=== PATIENT | female | born 1995 | race Caucasian/White ===

== ENCOUNTER 2024-11-14 08:39 | Outpatient (AMB) | payer OTHER, SELFPAY ==
--- NOTE | 2024-11-14 09:05 | A.OFFPC_ITS ---
Vital Signs 11/14/24 09:22 Height 5 ft 8 in Weight 203 lb 8 oz BMI 30.9 BP 124/75 Blood Pressure Location Rt brachial Position Sitting Respiration 16 Pulse 99 Pulse Source Pulse Oximeter Temp 98.3 F Temp Source Oral Pulse Oximetry (%) 98 Oxygen Delivery Method Room Air Intake Visit Reasons: LINING BASTER regular visit Intake Note: patient here for new patient visit. Fancy Packer Required: No Is last menstrual period known: Yes Last menstrual period: 10/26/24 Post menopausal: No Patient : No Allergies No Known Allergies Allergy (Verified 11/14/24 09:33) Medication List - Last Reconciled 11/14/24 by Dustin Guerrero, MASON drospirenone-ethinyl estradiol 3-0.03 mg (Destiney (28)) 1 tab PO DAILY Tobacco use date assessed: 11/14/24 Dental Screening Dental Screen Date: 11/14/24 Did you have a dental visit in the last 12 months?: Yes Did you have a dental problem in the last 6 months where you did not have access to dental care?: No Was dental information given to patient?: Patient has dentist HPI HPI Comments History of Present Illness Details 29-year-old female presents to establish care. Relocated from [facility] to [facility] in 03/2024 Prior PCP? - [facility] Last office visit/CPE/labs - 12/2023 Acute issue(s) - Unsteady gait due to h/o meningitis. She notes that she was misdiagnosed in [facility] for several years. She was told by her neurologist that her meningitis resulted in nerve damage in her brain leading to gait abnormality. She did physical therapy in allergy without improvement of her gait. She is willing to try physical therapy again. Past Medical History - Myopia - Constipation - Meningitis: at 1 year and 4 years old - Unsteady gait due to h/o meningitis Surgical History - LASIK surgery both eyes - Tooth extraction Family History - Denies (she is adopted and does not kn ow her family background) Social History - Nonsmoker. Does not vape. Does not dri nk alcohol. Denies recreational drug use - Has been making healthy dietary choice s. Exercises routinely. Generally sleep well Health maintenance - Last eye exam was 4 years ago. Referre d to Ophthalmology for routine eye care - Last dental visit was earlier this tue - Last tetanus vaccine was in 11/20/2023 - She notes that she is up-to-date on th e flu vaccine - She has never had a pap smear test. Re ferred to [facility] control electrician for a pap smear test [facility] Medical History (Updated 11/15/24 @ 15:05 by Dustin Guerrero CNP) Constipation Meningitis Surgical History (Updated 11/14/24 @ 09:13 by Ai Mauricio) Hx of LASIK History of tooth extraction Social History Housing: Apartment Patient Tobacco Use Status: Never used Tobacco e-Cigarette/Vaping Use: Never Used Second Hand Smoke Exposure: Yes service: No Current occupational status: unemployed Current occupational exposures/hazards: No Cognitive needs: No Hearing needs: No Vision needs: No Female Reproductive History Menstrual Date of last menstrual period: 10/26/24 Questionnaire PHQ-9 Over the last 2 weeks, how often have you been bothered by any of the following problems? 1. Little interest or pleasure in doing things: not at all 2. Feeling down, depressed, or hopeless: not at all 3. Trouble falling or staying asleep, or sleeping too much: several days 4. Feeling tired or having little energy: not at all 5. Poor appetite or overeating: not at all 6. Feeling bad about yourself - or that you are a failure or have let yourself or your family down: not at all 7. Trouble concentrating on things, such as reading the newspaper or watching television: several days 8. Moving or speaking so slowly that other people could have noticed. Or the opposite - being so fidgety or restless that you have been moving around a lot more than usual: not at all 9. Thoughts that you would be better off or of hurting yourself in some way: not at all Total score: 2 Depression Screening Interpretation: Negative Depression Screening Done: Yes 71698 - PHQ-9 Billing: Yes Source: Developed by Drs. Attila Oglesby, Shazia Mendoza, Sp Smith and colleagues, with an educational tosha from [employer]. Thrive Questionnaire Date Thrive assessed: 11/14/24 I am a: Patient What is your living situation today?: I have a steady place to live Within the past 12 months, did the food you bought not last and you didn't have the money to get more?: Never true Within the past 12 months, did you worry whether your food would run out before you got money to buy more?: Never true Do you have trouble paying for medicines?: No Do you have trouble getting transportation to medical appointments?: No Do you have trouble paying your heating and electricity bill?: No Do you have trouble taking care of your child, family member or friend?: No Do you have trouble with day-to-day activities such as bathing, preparing meals, shopping, managing finances, etc.?: No Are you currently unemployed and looking for a job?: Yes Are you interested in more education?: No Please select the resources that you would like help with: None Currently or been in a relationship where the following occur: No concerns reported THRIVE Score: 0 AUDIT C Alcohol Use Questionnaire (AUDIT-C) 1. How often do you have a drink containing alcohol?: Never 3. How often do you have six or more drinks on one occasion?: Never Total Score: 0 Score Reviewed/Action Taken: Yes JUAN CARLOS-7 AMB Questionnaire JUAN CARLOS-7 Date JUAN CARLOS - 7 assessed: 11/14/24 Feeling nervous, anxious, or on edge: 0 = Not at all Not being able to stop or control worryin = Several days Worrying too much about different things: 1 = Several days Trouble relaxin = Not at all Being so restless that it is hard to sit still: 0 = Not at all Becoming easily annoyed or irritable: 0 = Not at all Feeling afraid as if something awful might happen: 0 = Not at all Total JUAN CARLOS-7 score (0-4 normal; 5-9 mild; 10-14 moderate; 15-21 severe): 2 Source: Developed by Drs. Attila Oglesby, Shazia Mendoza, Sp Smith and colleagues, with an educational tosha from [employer]. Review of Systems Const Details: Denies chills, Denies fatigue, Denies fever(s), Denies headache(s) and Denies weakness HEENT Denies change in vision, Denies dizziness, Denies headache(s), Denies hearing loss, Denies nasal congestion, Denies sinus pain, Denies sinus pressure and Denies sore throat Card Denies chest pain, Denies lightheadedness, Denies dyspnea and Denies other (palpitations) Resp Denies cough, Denies dyspnea and Denies wheezing GI Denies abdominal pain, Denies melena, Denies hematochezia, Denies change in bowel habits, Denies dyspepsia and Denies nausea Denies hematuria and Denies dysuria Musc Reports abnormal gait, Denies myalgias, Denies arthralgias, Denies numbness and Denies tingling Skin/Breast Denies rash, Denies unusual bruising and Denies wounds Neuro Reports abnormal gait, Denies dizziness, Denies headache(s), Denies memory loss, Denies numbness, Denies Sensory deficit (Neuro), Denies tingling and Denies weakness Psych Denies anxiety, Denies depression and Denies memory loss Endo Denies cold intolerance, Denies fatigue, Denies heat intolerance, Denies polydipsia and Denies polyuria Rajan/Lymph Denies easy bleeding and Denies easy bruising Aller/Immun Denies wheezing Physical exam (Primary Care) Vital Signs: Last Vital Signs Temp 98.3 F 11/14/24 09:22 Pulse 99 11/14/24 09:22 Resp 16 11/14/24 09:22 BP 124/75 11/14/24 09:22 Pulse Ox 98 11/14/24 09:22 Oxygen Delivery Method Room Air 11/14/24 09:22 BMI result Body Mass Index 30.9 Tobacco/Smoking Status: Tobacco use Status Tobacco use date assessed 11/14/24 11/14/24 09:25 Patient Tobacco Use Status Never used Tobacco 11/14/24 09:25 e-Cigarette/Vaping Use Never Used 11/14/24 09:25 PHQ-9: PHQ-9 Score PHQ-9: Total score 2 11/14/24 09:34 Depression Screening Interpretation: Negative Thrive Assessment: Date of Thrive Assessment Date Thrive assessed 11/14/24 11/14/24 09:09 Currently or been in a relationship where the following occur: No concerns reported Const Other: General: no acute distress, well developed, alert and awake Nutritional Appearance: well nourished Orientation/consciousness: patient oriented x3 HENMT Head: Yes normocephalic and Yes atraumatic Ears: hearing grossly normal bilaterally and TM's normal bilaterally General nose exam: Normal external nose present and Normal nares present Mouth: Normal oral and palatal mucosa present and moist mucous membranes Teeth and gingiva: dentition normal Throat: Yes oropharynx normal Eyes Pupils: Equal, round and reactive pupils present and Pupil accommodation reflex normal EOM: EOMs intact bilaterally Neck Neck: Yes normal visual inspection, Yes no lymphadenopathy and Yes trachea midline Thyroid: Thyroid normal Carotids: no bruits Lymphatic: no lymphadenopathy noted Chest Chest palpation & inspection: normal inspection of the chest Resp Effort & Inspection: normal respiratory effort Auscultation: clear to auscultation bilaterally Cardio Rate: regular rate Rhythm: regular rhythm Heart sounds: S1 normal heart sound present, S2 normal heart sound present, no gallops, no murmurs and no rubs Bruits: no abdominal aortic bruits and no carotid bruits GI Palpation (GI): No Abdominal aortic bruit present, Soft to palpation, nontender, No hepatosplenomegaly present and No Rebound tenderness present Auscultation: normal bowel sounds General: Yes no CVA tenderness Back/Spine/Pelvis Back: no CVA tenderness Cervical Spine: cervical ROM normal and No Cervical spine tenderness Thoracic/Lumbar Spine: thoraco-lumbar ROM normal, No pain with thoraco-lumbar ROM, No thoracic spinal tenderness and No lumbar spinal tenderness Skin General: warm and dry. Normal skin color. Normal skin turgor Lesions: no lesions Rashes: no rashes Trauma: no lacerations or abrasions Wounds: no wounds Nails: normal Neuro General: patient oriented x3, unsteady gait and CN's II-XI intact bilaterally Cranial nerves: Yes Equal, round and reactive pupils present Cognition (Neuro): normal cognition Gait exam (Neuro): Unsteady gait present Motor exam (neuro): 5/5 motor strength present throughout Sensory Exam: No Sensory deficit (Neuro) Deep tendon reflexes (DTR's): Right patellar reflex intensity grade: 2+ and Left patellar reflex intensity grade: 2+ Extrem General: Yes normal to inspection, No edema and No calf tenderness Psych Appearance: grossly normal Affect: normal affect Attitude: cooperative Thought process: Normal thought process present Coding Level of Care Code New Pt Level 4 (49592) New Pt Prev Care 18-39yr(80101 Diagnoses Normal physical examination, routine Z00.00 Pap smear for cervical cancer screening Z12.4 Obesity (BMI 30.0-34.9) E66.811 Eye exam, routine Z01.00 Unsteady gait R26.81 History of meningitis Z86.61 Laboratory tests ordered as part of a complete physical exam (CPE) Z00.00 Additional Codes PHQ-9 - 32986 - PHQ-9 Billing: Yes ([id number]) Assessment & Plan Assessment & Plan (1) Normal physical examination, routine: Code(s): Z00.00 - Encounter for general adult medical examination without abnormal findings Category: Medical Plan: Normal physical exam except for unsteady gait related to childhood meningitis. Advised to perform lab work and follow-up for telehealth visit in 2-3 weeks for labs review. Return sooner with symptoms or concerns. Verbalized understanding and agreed with treatment plan. (2) Pap smear for cervical cancer screening: Code(s): Z12.4 - Encounter for screening for malignant neoplasm of cervix Category: Medical Plan: She has never had a pap smear test. Referred to [facility] control electrician for a pap smear test. (3) Obesity (BMI 30.0-34.9): Code(s): E66.811 - Obesity, class 1 Category: Medical Plan: She currently weighs 203 lb, BMI is 30.9. Declines referral to tobacco stripping machine operator at this time and notes that she would continue to make healthy dietary changes and exercise routinely. Healthy diet and routine exercise encouraged. Follow-up as needed. Verbalized understanding and agreed with the treatment plan. (4) Eye exam, routine: Code(s): Z01.00 - Encounter for examination of eyes and vision without abnormal findings Category: Medical Plan: Last eye exam was 4 years ago. Referred to Ophthalmology for routine eye care. (5) Unsteady gait: Code(s): R26.81 - Unsteadiness on feet Category: Medical Plan: Unsteady gait to bilateral lower extremity related to childhood meningitis. She had physical therapy without improvement. She is willing to try physical therapy again. Referred to [facility] physical therapy for lower extremity strengthening and mobility. Also referred to [facility] to rule out other neurological causes. Follow-up with symptoms or concerns. Verbalized understanding and agreed with the plan. (6) History of meningitis: Code(s): Z86.61 - Personal history of infections of the central nervous system Category: Medical Plan: Plan as above. (7) Laboratory tests ordered as part of a complete physical exam (CPE): Code(s): Z00.00 - Encounter for general adult medical examination without abnormal findings Category: Medical Plan: Fasting labs ordered as part of a complete physical exam. Advised to fast for at least 10 hours before getting labs drawn. May drink water Verbalized understanding and agreed with treatment plan. Orders: Orders Complete Blood Count Auto Diff 11/14/24 Z00.00 - Encounter for general adult medical examination without abnormal findings Comprehensive [place]. Panel Fast 11/14/24 Z00.00 - Encounter for general adult medical examination without abnormal findings TSH reflex Free T4 11/14/24 Z00.00 - Encounter for general adult medical examination without abnormal findings Lipid Panel 11/14/24 Z00.00 - Encounter for general adult medical examination without abnormal findings UA CC w/rflx Micro + Cult 11/14/24 Z00.00 - Encounter for general adult medical examination without abnormal findings Vitamin D 25-OH Total 11/14/24 Z00.00 - Encounter for general adult medical exa mination without abnormal findings Microalbumin, Random (w Creat) 11/14/24 Z00.00 - Encounter for general adult medical examination without abnormal findings PT Evaluation and Treatment Today R26.81 - Unsteadiness on feet Referrals Ophthalmology Referral Z01.00 - Encounter for examination of eyes and vision without abnormal findings MAINTENANCE FITTER Referral Z12.4 - Encounter for screening for malignant neoplasm of cervix Neurology Referral R26.81 - Unsteadiness on feet, Z86.61 - Personal history of infections of the central nervous system
--- OUTSIDE RECORDS SUMMARY | 2024-11-14 09:17 | XMS_ITS | Clinical Summary ---
Author Organization [facility] [address] [place] [address] [place] [phone] Phone Care Team Providers Care Crane Assembler Name Role Phone Unavailable Primary Care Provider Unavailabl e Medications drospirenone-eth inyl estradioL (LINCOLN,PRASANNA,Y [place]) 3-0.02 mg per tablet Take 1 tablet by mouth 1 (one) time each day. 84 tablet 1 10/25/2024 Active Encounters Date Type Department Care Team Description 10/25/2024 10:30 AM EST Office Visit Obstetrics and Gynecology [facility] [address] [place] [phone] Kristian Finnegan CNM General counseling and advice for contraceptive management (Primary Dx); BCP ( control pills) initiation from Last 3 Months Social History Tobacco Use Types Packs/Day Years Used Date Smoking Tobacco: Never Assessed Comments No Sex and Gender Information Value Date Recorded Sex Assigned at Not on file Legal Sex Female 1:10 PM EST Gender Identity Not on file Sexual Orientation Not on file Last Filed Vital Signs Vital Sign Reading Time Taken Comments Blood Pressure 117/81 10/25/2024 10:21 AM EST Pulse 73 10/25/2024 10:21 AM EST Temperature - - Respiratory Rate - - Oxygen Saturation - - Inhaled Oxygen Concentration - - Weight 93 kg (205 lb) 10/25/2024 10:21 AM EST Height - - Body Mass Index - - Plan of Treatment Upcoming Encounters Date Type Department Care Team (Late st Contact Info) Description 01/24/2025 10:30 AM EDT Office Visit Obstetrics and Gynecology - [place] [address] [place] [phone] Kristian Finnegan, CNM [address] [place] [address] Health Maintenance Due Date Last Done Comments DTaP,Tdap,and Td Vaccines (1 - Tdap) 2012 Hepatitis B Vaccines (1 of 3 - 19+ 3-dose series) 2012 Cervical Cancer Screening: P ap Smear 2014 COVID-19 Vaccine ( - 2023-2 5 season) 2024 Influenza Vaccine (#1) 2024 Depression Screening 08/02/2024 HIV Screening 08/02/2024 Hepatitis C Screening 08/02/2024 Social Influencers of Health Screening 08/02/2024 HIB Vaccines Aged Out No longer eligi ble based on patient's age to complete this topic HPV Vaccines Aged Out No longer eligi ble based on patient's age to complete this topic Hepatitis A Vaccines Aged Out No long er eligible based on patient's age to complete this topic IPV Vaccines Aged Out No longer eligi ble based on patient's age to complete this topic MMR Vaccines Aged Out No longer eligi ble based on patient's age to complete this topic Meningococcal ACWY Vaccine Aged Out N o longer eligible based on patient's age to complete this topic Meningococcal B Vacine Aged Out No lo nger eligible based on patient's age to complete this topic Pneumococcal Vaccine: Pediat rics (0 to 5 Years) and At-Risk Patients (6 to 64 Years) Aged Out No longer eligible b ased on patient's age to complete this topic RSV Immunization Patients Un lindy 20 months Aged Out No longer eligible b ased on patient's age to complete this topic Varicella Vaccines Aged Out No longer eligible based on patient's age to complete this topic Insurance [employer] [facility]
--- OUTSIDE RECORDS SUMMARY | 2024-11-14 09:17 | XMS_ITS | Encounter Summary ---
Author Organization [facility] [place] [address] Care Team Providers Care Oracle Database Manager Name Role Phone Unavailable Primary Care Provider Unavailabl e Reason for Visit * Reason Comments Consult Encounter Details Date Type Department Care Team (Latest Contact Info) Description 10/25/2024 10:30 AM EST Office Visit Obstetrics and Gynecology - [place] [address] [place] [phone] Kristian Finnegan CN [address] [place] [address] General counseling and advice for contraceptive management (Primary Dx); BCP ( control pills) initiation Social History Tobacco Use Types Packs/Day Years Used Date Smoking Tobacco: Never Assessed Comments No Sex and Gender Information Value Date Recorded Sex Assigned at Not on file Legal Sex Female 1:10 PM EST Gender Identity Not on file Sexual Orientation Not on file documented as of this encounter Last Filed Vital Signs Vital Sign Reading Time Taken Comments Blood Pressure 117/81 10/25/2024 10:21 AM EST Pulse 73 10/25/2024 10:21 AM EST Temperature - - Respiratory Rate - - Oxygen Saturation - - Inhaled Oxygen Concentration - - Weight 93 kg (205 lb) 10/25/2024 10:21 AM EST Height - - Body Mass Index - - documented in this encounter Ordered Prescriptions Prescription Sig Dispense Quantity Refills Last Filled Start Date End Date drospirenone-ethiny l estradioL (GIANNATA,ARGELIAA,LELIA) 3-0.02 mg per tablet Take 1 tablet by mouth 1 (one) time each day. 84 tablet 1 10/25/2024 documented in this encounter Progress Notes * Kristian Finnegan CNM - 10/25/2024 10:30 AM EST Chief Complaint Patient presents with Consult .Subjective Patient ID: Lian Kendall is a 29 y.o. female. Presents new establishing care [place] happy with methoddenies CI to use desires to continue. Currently on no method. HPI Active Ambulatory Problems Diagnosis Date Noted No Active Ambulatory Problems Resolved Ambulatory Problems Diagnosis Date Noted No Resolved Ambulatory Problems No Additional Past Medical History Not on File Review of Systems Constitutional: Negative for chills, fatigue and fever. Respiratory: Negative for shortness of breath. Gastrointestinal: Negative for abdominal pain. Endocrine: Negative for cold intolerance and heat intolerance. Genitourinary: Negative for difficulty urinating, dysuria, frequency, pelvic pain, urgency, vaginalbleeding and vaginal discharge. Musculoskeletal: Negative for back pain and joint swelling. Neurological: Negative for light-headedness and headaches. Objective Vitals: 10/25/24 1021 BP: 117/81 Pulse: 73 Physical Exam Constitutional: Appearance: Normal appearance. Neurological: Mental Status: She is alert and oriented to person, place, and time. Assessment/Plan General counseling and advice for contraceptive management (Primary) BCP ( control pills) initiation Other orders - drospirenone-ethinyl estradioL (LINCOLN,PRASANNA,LELIA) 3-0.02 mg per tablet; Take 1 tablet by mouth 1(one) time each day. Dispense: 84 tablet; Refill: 1 Pt to return for annual documented in this encounter Plan of Treatment Upcoming Encounters Date Type Department Care Team (Late st Contact Info) Description 01/24/2025 10:30 AM EDT Office Visit Obstetrics and Gynecology - [place] [address] [place] [phone] Kristian Finnegan CNM [address] [place] [address] documented as of this encounter Visit Diagnoses Diagnosis General counseling and advice for contraceptive management- Primary BCP ( control pills) initiation General counseling for prescription of oral contraceptives documented in this encounter
[2024-11-14 09:22] VITALS: BP 124/75; PULSE 99; RESP 16; TEMP 36.8; O2SAT 98; BMI 30.9
== END 2024-11-14 10:08 | disposition home or self-care (01) ==
PROVIDERS: PCP Nurse Practitioner Family; Visit Provider Nurse Practitioner Family
DX: Z00.00 Encounter for general adult medical examination without abnormal findings (principal); R26.81 Unsteadiness on feet; E66.811 Obesity, class 1; Z68.30 Body mass index [BMI] 30.0-30.9, adult; Z86.61 Personal history of infections of the central nervous system

== ENCOUNTER → 2024-11-14 08:39 | Outpatient (BNVA) | payer OTHER, SELFPAY | PROVIDERS: PCP Nurse Practitioner Family; Visit Provider Nurse Practitioner Family | DX: Z00.00 Encounter for general adult medical examination without abnormal findings (principal); E66.811 Obesity, class 1; Z68.30 Body mass index [BMI] 30.0-30.9, adult; R26.81 Unsteadiness on feet; Z86.61 Personal history of infections of the central nervous system | CPT/HCPCS: 96127 ==

== ENCOUNTER 2024-11-22 10:01 | Outpatient (REF) | payer OTHER, SELFPAY ==
--- OUTSIDE RECORDS SUMMARY | 2024-11-22 11:42 | XMS_ITS | Clinical Summary ---
Author Organization [facility] [address] [place] [address] [place] [phone] Phone Care Team Providers Care Bed Laborer Name Role Phone Unavailable Primary Care Provider Unavailabl e Medications drospirenone-eth inyl estradioL (LINCOLN,PRASANNA,Y [place]) 3-0.02 mg per tablet Take 1 tablet by mouth 1 (one) time each day. 84 tablet 1 10/25/2024 Active Encounters Date Type Department Care Team Description 10/25/2024 10:30 AM EST Office Visit Obstetrics and Gynecology [facility] [address] [place] [phone] Kristian Finnegan CNM General counseling and advice [...] EDT Office Visit Obstetrics and Gynecology - [place] [address] [place] [phone] Kristian Finnegan, CNM [address] [place] [address] Health Maintenance Due Date Last Done Comments [...] patient's age to complete this topic Insurance [employer] [facility]
--- OUTSIDE RECORDS SUMMARY | 2024-11-22 11:42 | XMS_ITS | Encounter Summary ---
Author Organization [facility] [place] [address] Care Team Providers Care Licensed Veterinary Technician Name Role Phone Unavailable Primary Care Provider Unavailabl e Reason for Visit * Reason Comments Consult Encounter Details Date Type Department Care Team (Latest Contact Info) Description 10/25/2024 10:30 AM EST Office Visit Obstetrics and Gynecology - [place] [address] [place] [phone] Kristian Finnegan CN [address] [place] [phone] General counseling and advice for contraceptive management [...] EDT Office Visit Obstetrics and Gynecology - [place] [address] [place] [phone] Kristian Finnegan CNM [address] [place] [address] documented as of this encounter Visit Diagnoses Diagnosis General counseling and advice for contraceptive management- Primary BCP ( control pills) initiation General counseling for prescription of oral contraceptives documented in this encounter
[2024-11-22 12:00] LABS: MANUAL DIFF FLAG NO
[2024-11-22 12:04] LABS: Basophils Absolute Auto 0.1 X10*3/uL (0.0-0.2); Basophils Percent Auto 1.1 % (0-2); Eosinophils Absolute Auto 0.1 X10*3/uL (0.0-0.4); Eosinophils Percent Auto 1.4 % (0-4); Hematocrit 36.8 % (37.0-47.0); Hemoglobin 12.5 g/dl (12.0-16.0); Imm Gran Abs Auto 0.02 X10*3/uL (0.00-0.03); Imm Gran Pct Auto 0.4 % (0.0-0.4); Lymphocytes Percent Auto 35.3 % (20-40); Mean Corpuscular Hemoglobin 29.8 pg (27.0-33.0); Mean Corpuscular Volume 87.6 fL (80.0-98.0); Mean Platelet Volume 9.9 fL (9.4-12.3); Monocytes Absolute Auto 0.4 X10*3/uL (0.1-1.2); Monocytes Percent Auto 6.9 % (2-11); Neutrophils Absolute Auto 3.1 x10*3/uL (2.0-8.3); Neutrophils Percent Auto 54.9 % (45-73); Platelet Count 417 X10*3/uL (160-400); Red Cell Distribution Width 12.9 % (11.0-16.0); White Blood Count 5.6 X10*3/uL (4.8-10.8)
[2024-11-22 12:45] LABS: Alanine Aminotransferase 44 U/L (0-31); Albumin Level 4.1 g/dL (3.5-5.0); Alkaline Phosphatase 63 U/L (39-117); Anion Gap 11 (12-20); Aspartate Amino Transferase 30 U/L (5-31); Bilirubin Total 0.8 mg/dL (0.0-1.0); Blood Urea Nitrogen 8 mg/dL (9-16); Calcium 9.4 mg/dL (8.4-10.2); Carbon Dioxide 27 mmol/L (22-29); Chloride 105 mmol/L (96-108); Cholesterol 148 mg/dL (<200); Estimated Glomerular Filt Rate > 60; Glucose Fasting 79 mg/dL (60-99); HDL Cholesterol 44 mg/dL (>40); LDL Cholesterol Calculated 70 mg/dL (<100); Potassium 3.7 mmol/L (3.3-5.1); Sodium 139 mmol/L (135-145); Triglycerides 170 mg/dL (<150)
[2024-11-22 13:00] LABS: TSH reflex Free T4 2.87 uIU/mL (0.32-4.0); Vitamin D 25-OH Total 28.7 ng/mL (>30)
== END 2024-11-22 10:02 | disposition home or self-care (01) ==
LOC: HO.WFDLDS 10:01
PROVIDERS: Visit Provider Nurse Practitioner Family
DX: Z00.00 Encounter for general adult medical examination without abnormal findings (principal); Z13.6 Encounter for screening for cardiovascular disorders
CPT/HCPCS: 36415; 80053; 80061; 82306; 84443; 85025

== ENCOUNTER 2024-11-26 17:35 | Outpatient (REF) | payer OTHER, SELFPAY ==
[2024-11-26 17:44] LABS: Appearance Urine Clear; Color Urine Yellow; Glucose Urine UA Negative (Negative); Leukocyte Esterase Urine Negative (Negative); Nitrite Urine Negative (Negative); PH 6.5 (5.0-9.0); Specific Gravity - Urine 1.015 (1.005-1.025); UMIC TRIGGER UACC YES; Urine Blood Large (3+) (Negative); Urine Ketones Negative (Negative); Urine Protein Negative (Neg-Trace)
[2024-11-26 17:46] LABS: Bacteria Urine Trace (None Seen); Hyaline Casts Urine 0-2 /LPF (0-2); WBC Urine 0-5 /HPF (0-5)
[2024-11-26 18:21] LABS: Creatinine Urine 101.09 mg/dL; Microalbum/Creatinine Ratio Ur 9.8 ug/mg cr (<30)
--- OUTSIDE RECORDS SUMMARY | 2024-11-26 18:29 | XMS_ITS | Clinical Summary ---
Author Organization [facility] [address] [place] [address] [place] [phone] Phone Care Team Providers Care Ground Crew Linesman Name Role Phone Unavailable Primary Care Provider Unavailabl e Medications drospirenone-eth inyl estradioL (LINCOLN,PRASANNA,Y [place]) 3-0.02 mg per tablet Take 1 tablet by mouth 1 (one) time each day. 84 tablet 1 10/25/2024 Active Encounters Date Type Department Care Team Description 10/25/2024 10:30 AM EST Office Visit Obstetrics and Gynecology [facility] [address] [place] [phone] Kristian Finnegan CNM General counseling and advice [...] EDT Office Visit Obstetrics and Gynecology - [place] [address] [place] [phone] Kristian Finnegan, CNM [address] [place] [address] Health Maintenance Due Date Last Done Comments [...] patient's age to complete this topic Insurance [employer] [facility]
== END 2024-11-26 17:36 | disposition home or self-care (01) ==
LOC: HO.LNP 17:35
PROVIDERS: Visit Provider Nurse Practitioner Family
DX: Z00.00 Encounter for general adult medical examination without abnormal findings (principal)
CPT/HCPCS: 81001; 82043; 82570

== ENCOUNTER 2024-11-30 12:18 | Outpatient (AMB) | payer OTHER, SELFPAY ==
--- NOTE | 2024-11-30 12:15 | A.OFFPC_ITS ---
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 She offers no complaints and denies acute symptoms at this time. [facility] Medical History (Updated 11/30/24 @ 13:07 by Dustin Guerrero CNP) Constipation Meningitis Surgical History (Updated 11/14/24 @ 09:13 by Ai Mauricio MA) Hx of LASIK History of tooth extraction Social History Housing: Apartment Patient Tobacco Use Status: Never used Tobacco e-Cigarette/Vaping Use: Never Used Second Hand Smoke Exposure: Yes Patient : No service: No Current occupational status: unemployed Current occupational exposures/hazards: No Cognitive needs: No Hearing needs: No Vision needs: No Female Reproductive History Menstrual Date of last menstrual period: 11/23/24 Questionnaire Thrive Questionnaire Date Thrive assessed: 11/13/24 I am a: Patient What is your living situation today?: I have a steady place to live Within the past 12 months, did the food you bought not last and you didn't have the money to get more?: Never true Within the past 12 months, did you worry whether your food would run out before you got money to buy more?: Never true Do you have trouble paying for medicines?: No Do you have trouble getting transportation to medical appointments?: No Do you have trouble paying your heating and electricity bill?: No Do you have trouble taking care of your child, family member or friend?: No Do you have trouble with day-to-day activities such as bathing, preparing meals, shopping, managing finances, etc.?: No Are you currently unemployed and looking for a job?: Yes Are you interested in more education?: No Please select the resources that you would like help with: None Currently or been in a relationship where the following occur: No concerns reported THRIVE Score: 0 JUAN CARLOS-7 AMB Questionnaire JUAN CARLOS-7 Date JUAN CARLOS - 7 assessed: 11/14/24 Source: Developed by Drs. Attila Oglesby, Shazia Mendoza, Sp Smith and colleagues, with an educational tosha from [employer]. Review of Systems Const Details: Denies chills, Denies fatigue, Denies fever(s), Denies headache(s) and Denies weakness Cardiac Denies chest pain, Denies claudication, Denies leg edema, Denies lightheadedness, Denies palpitations, Denies dyspnea, Denies dyspnea on exertion, Denies orthopnea and Denies other (Loss of consciousness) Resp Denies cough, Denies excessive phlegm production, Denies dyspnea, Denies dyspnea on exertion, Denies snoring and Denies wheezing Physical exam (Primary Care) Tobacco/Smoking Status: Tobacco use Status Tobacco use date assessed 11/30/24 11/30/24 12:18 Patient Tobacco Use Status Never used Tobacco 11/30/24 12:18 e-Cigarette/Vaping Use Never Used 11/30/24 12:18 Thrive Assessment: Date of Thrive Assessment Date Thrive assessed 11/13/24 11/30/24 12:18 Currently or been in a relationship where the following occur: No concerns reported Const Other: Patient is alert and oriented x3. Telehealth Telehealth Telehealth Platform: Telephone Location of provider rendering services: practice address Location of patient: address on file Patient Identification confirmed using: Name, : Yes Telehealth method: voice only Patient verbally consented to treatment: Yes Patient verbally consented to billing insurance company: Yes Patient informed of any privacy concerns related to visit: Yes Coding Level of Care Code Tele New Pt Level 3 (54801) Diagnoses Elevated ALT measurement R74.01 Hypertriglyceridemia E78.1 Vitamin D deficiency E55.9 Thrombocytosis D75.839 Time Spent (min) 15 Assessment & Plan Assessment & Plan (1) Elevated ALT measurement: Code(s): R74.01 - Elevation of levels of liver transaminase levels Category: Medical Plan: Recent ALT level was slightly elevated, 44. Fatty liver deposit is possible. Healthy diet, including low-fat, and routine exercise encouraged. Advised to fast for 10-12 hours, may drink water, and perform fasting blood work 2-3 days before next visit. Verbalized understanding and agreed with the plan. (2) Hypertriglyceridemia: Code(s): E78.1 - Pure hyperglyceridemia Category: Medical Plan: Recent triglyceride level is slightly elevated, 170. Total cholesterol, LDL, and HDL levels are normal. Advised to limit foods high in saturated fat and avoid foods high in trans fat. Routine exercise encouraged. Will recheck lipid panel levels in 3 months. Verbalized understanding and agreed with the treatment plan. (3) Vitamin D deficiency: Code(s): E55.9 - Vitamin D deficiency, unspecified Category: Medical Plan: Recent vitamin-D level is slightly elevated, 28.7. Vitamin D3 1000 units daily ordered; advised to take as prescribed. Will check vitamin-D level in 3 months. Verbalized understanding and agreed with the plan. (4) Thrombocytosis: Code(s): D75.839 - Thrombocytosis, unspecified Category: Medical Plan: Recent platelet count is slightly elevated, 417. Equivocal. Will recheck platelet count and make changes as needed. Verbalized understanding and agreed with the plan. Orders: Orders Platelet Count Today D75.839 - Thrombocytosis, unspecified Lipid Panel 3 Months E78.1 - Pure hyperglyceridemia Liver Panel 3 Months R74.01 - Elevation of levels of liver transaminase levels Vitamin D 25-OH Total 3 Months E55.9 - Vitamin D deficiency, unspecified Medications: New cholecalciferol (vitamin D3) 25 mcg PO DAILY 90 days 90 tabs 1RF
--- OUTSIDE RECORDS SUMMARY | 2024-11-30 13:55 | XMS_ITS | Clinical Summary ---
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 84 tablet 1 10/25/2024 Active Encounters Date Type Department Care Team Description 10/25/2024 10:30 AM EST Office Visit Obstetrics and Gynecology [facility] [address] [place] [phone] Kristian Finnegan CNM General counseling and advice [...] EDT Office Visit Obstetrics and Gynecology - [place] [address] [place] [phone] Kristian Finnegan, CNM [address] [place] [address] Health Maintenance Due Date Last Done Comments [...] patient's age to complete this topic Insurance [employer] [facility]
== END 2024-11-30 13:19 | disposition home or self-care (01) ==
LOC: HO.HMCFM 12:18
PROVIDERS: PCP Nurse Practitioner Family; Visit Provider Nurse Practitioner Family
DX: R74.01 Elevation of levels of liver transaminase levels (principal); E78.1 Pure hyperglyceridemia; E55.9 Vitamin D deficiency, unspecified; D75.839 Thrombocytosis, unspecified